=== PATIENT | female | born 1980 | race Caucasian/White ===

== ENCOUNTER 2018-07-24 09:36 | Outpatient (CLI) | payer OTHER | END 2018-07-24 10:36 | disposition home or self-care (01) | LOC: NST 09:36 | DX: Z34.83 Encounter for supervision of other normal pregnancy, third trimester (principal); O36.8130 Decreased fetal movements, third trimester, not applicable or unspecified ==

== ENCOUNTER 2018-08-03 04:45 | Inpatient (IN) | payer OTHER ==
[~2018-08-03] VITALS: Ht 165.1 cm; Wt 2.3 kg
[~2018-08-03 04:45] MED LIST: FUSION PLUS CA1 EACH PO; GILENYA0.5 MG PO; INTEGRA PLUS C1 EACH PO; PROCARDI PO
[2018-08-06] MEDS ORDERED: NIFE60TA3 PO (09:11)
== END 2018-08-06 11:30 | disposition home or self-care (01) | DRG 788 ==
LOC: LDR 04:45 → OB/GYN 12:56
PROVIDERS: ADMIT Specialist
PROC: 4A1HXCZ Monitoring of Products of Conception, Cardiac Rate, External Approach (ICD-10-PCS; 2018-08-03)
PROC: 10D00Z1 Extraction of Products of Conception, Low, Open Approach (ICD-10-PCS; principal; 2018-08-03 09:45)
DX: O82 Encounter for cesarean delivery without indication (principal); O34.29 Maternal care due to uterine scar from other previous surgery; O26.893 Other specified pregnancy related conditions, third trimester; G35 Multiple sclerosis; Z3A.39 39 weeks gestation of pregnancy; Z37.0 Single live birth